=== PATIENT | female | born 1990 | race Caucasian/White ===

== ENCOUNTER 2023-07-04 15:27 | Emergency (ER) | payer MEDICAID, SELFPAY ==
[2023-07-04 15:28] VITALS: BP 117/94; PULSE 87; RESP 16; TEMP 36.7; O2SAT 95; BMI 26.2
--- NOTE | 2023-07-04 15:50 | EDS_ITS ---
HPI History of Present Illness Chief Complaint: Substance Abuse Informant: patient Onset/Context/Timing Onset: Today Context: Gradual Onset Timing: Continuous Worsened by: Nothing Relieved by: Nothing Associated Symptoms Associated Symptoms: Positive for diarrhea* and no; Negative for vomiting*, fever*, rash*, seizure, tremor, palpatations, change in mental status, suicidal ideation or homicidal ideation Narrative Narrative: Patient presents requesting detox from heroin. Patient states she uses approximately 1 g/day. Patient states she injects into her hands. Patient states her last use was approximately 14 hours prior to arrival. Patient admits to some diarrhea. Patient denies any fevers. Patient admits to some chills and sweats. Patient admits to nausea but denies any vomiting. Patient denies any chance of . Patient denies any suicidal homicidal ideations. [facility] Medical History (Updated 07/04/23 @ 16:[address] Ian Adair DO) Depression Medical History unable to obtain Allergy/AdvReac Type Severity Reaction Status Date / Time No Known Allergies Allergy Verified 07/04/23 15:30 Surgical History (Updated 07/04/23 @ 16:[address] Ian Adair DO) Hx of section Hx of tubal ligation Surgical History unable to obtain Social History (Updated 07/04/23 @ 16:[address] Ian Adair DO) Smoking Status: Current every day smoker tobacco type: cigarettes Smoking packs per day: 1 Smoking cigarettes per day: 20.0 ROS ROS ED Constitutional Constitutional ED: Reports chills and sweats; Denies fever(s) Eyes Eyes: Denies blurry vision or change in vision ENT ENT ED: Denies rhinorrhea or sore throat Cardiovascular Cardiovascular: Denies chest pain or palpitations Respiratory/Chest Respiratory/Chest: Denies cough or dyspnea Gastrointestinal Gastrointestinal: Reports diarrhea and nausea; Denies vomiting Genitourinary Genitourinary ED: Denies dysuria or hematuria Musculoskeletal Musculoskeletal: Reports neck pain; Denies back pain Integumentary Denies abscess or rash Neurologic Neurologic: Denies headache(s) or weakness Allergic/Immunologic Allergic/Immunologic ED: Denies mouth swelling or urticaria EXAM Physical Exam Const Vital Signs: 07/04/23 15:28 Temperature 98.1 F Temperature Source Temporal Pulse Rate 87 Respiratory Rate 16 Blood Pressure 117/94 H Blood Pressure Mean 101 Pulse Ox 95 Oxygen Delivery Method Room Air Positive well nourished and well developed General Appearance ED: well developed and NAD HEENT Reports moist mucous membranes Neck supple and no JVD Resp normal respiratory effort and clear to auscultation bilaterally Cardio regular rate and regular rhythm GI soft to palpation, non-tender and non-distended Neuro oriented x3, CN's II-XII intact bilaterally and no sensory deficits noted [place] Coma Scale: document GCS findings Spontaneous Obeys Commands Oriented 15 Sensorium / Orientation: alert Speech: speech normal Motor Exam: strength 5/5 throughout Psych mental status grossly normal Skin Skin Narrative: There is some mild erythema and tenderness over the dorsal aspect of the left thumb over the IP joint and right hand over the first metacarpal. There is no fluctuance. There is no evidence of any abscess. There is some mild induration on the right hand. There is full range of motion of the digits of the hands bilaterally. Sensation was intact to light touch in all digits. Capillary refill was less than 2 seconds in all digits. Strength is 5/5 in flexion and extension of all of the digits. MDM MDM MDM Narrative Medical decision making narrative: Patient was given the contract to sign for agreement to be admitted to the detox program. Patient did not agree with the entire contract and no longer was agreeable for detox. Patient left prior to obtaining any medical screening labs. Discharge Plan Triage Chief Complaint: Substance Abuse ED Provider: Ian Adair Dx/Rx/DC Orders Clinical Impression: Substance abuse, Tobacco abuse disorder Primary Care Provider: Care Physician,No Primary Referrals: Care Physician,No Primary [Primary Care Provider] - Disposition Disposition: [facility] Discharge Date/Time: 07/04/23 16:04
--- NOTE | 2023-07-04 15:53 | ED.RN ---
Pt. did not agree to [facility] program contract. Ambulated out of department.
--- NOTE | 2023-07-04 15:59 | ED.RN ---
given contract to review. after reviewing and boyfriend deciding to leave and not stay for detox pt decided to leave as well.
== END 2023-07-04 16:04 | disposition left against medical advice (07) ==
LOC: ED 15:57
PROVIDERS: Emergency Provider Emergency Medicine; Visit Provider Emergency Medicine
DX: F11.10 Opioid abuse, uncomplicated (principal); F17.210 Nicotine dependence, cigarettes, uncomplicated; Z98.51 Tubal ligation status
CPT/HCPCS: 99282